=== PATIENT | female | born 1960 | race African-American/Black ===

== ENCOUNTER 2018-02-09 03:01 | Emergency (ER) | payer SELFPAY ==
--- NOTE | 2018-02-09 03:26 | Emergency Department Report ---
ED Altered Mental Status HPI - General Stated Complaint: UNRESPONSIVE Time Seen by Provider: 02/09/18 03:21 Source: family, EMS Limitations: Language Barrier - History of Present Illness Initial Comments: Ms. Tinoco is 57 yo female who presents to ED via EMS for unresponsiveness. Patient has hx of HTN not treated. Son was able to give hx. Aunt called son to inform him that patient went to sleep and did not wake up. Blood glucose 238 according to EMS. No change with naloxone administered. No hx of tobacco or drug abuse. Patient does hard labor in factory. patient is unresponsive comatose. No response to internal stimuli. Covered in urine. Complaint: altered mental status, decreased responsiveness Severity: severe Context: unknown Treatments Prior to Arrival: IV fluid, oxygen - Related Data Allergies Allergy/AdvReac Type Severity Reaction Status Date / Time No Known Allergies Allergy Unverified 02/09/18 03:27 ED Review of Systems ROS: Stated complaint: UNRESPONSIVE Other details as noted in HPI Comment: Unobtainable due to pts medical conditions ED Past Medical Hx - Past Medical History Hx Hypertension: Yes - Family History Family history: vascular disease (mother with CVA) - Social History Smoking Status: Never Smoker Substance Use Type: None ED Physical Exam - General Limitations: Language Barrier (patient speak [place]), Altered Mental Status , Other (comatose) General appearance: obtunded, in distress, other (flexor posturing in upper extremities, extensor posturing in feet/legs, sonorous respirations) - Head Head exam: Present: atraumatic, normocephalic - Eye Eye exam: Present: other (fixed unreactive pupils 5 mm bilaterally no lid reflex no accomodation) - ENT ENT exam: Present: normal orophraynx - Neck Neck exam: Present: normal inspection - Respiratory Respiratory exam: Present: rales, rhonchi, accessory muscle use - Cardiovascular Cardiovascular Exam: Present: normal rhythm, irregular rhythm. Absent: systolic murmur, diastolic murmur - GI/Abdominal GI/Abdominal exam: Present: soft, other (no distention soft) - Extremities Exam Extremities exam: Present: other (extensor posturing) - Neurological Exam Neurological exam: Present: other (comatose) - Psychiatric Psychiatric exam: Present: other (comatose) - Skin Skin exam: Present: pallor, other - Other Other exam information: no response to sternal rub ED Course Vital Signs 02/09/18 02/09/18 02/09/18 03:08 03:10 03:13 Temperature 98 F Pulse Rate 72 104 H Respiratory 20 18 20 Rate Blood Pressure 131/86 O2 Sat by Pulse 97 100 100 Oximetry 02/09/18 02/09/18 02/09/18 03:16 03:30 03:46 Temperature Pulse Rate 113 H 94 H 103 H Respiratory 28 H 24 25 H Rate Blood Pressure 131/86 174/104 141/93 O2 Sat by Pulse 99 100 100 Oximetry 02/09/18 04:00 Temperature Pulse Rate 115 H Respiratory 24 Rate Blood Pressure 141/93 O2 Sat by Pulse 100 Oximetry - Intubation Time Out Performed: Yes Sedative: Etomidate Mg Given: 20 Paralytic: Succinylcholine Mg Given: 100 Laryngoscope: Vanessa Size: 4 ET Tube Size: 7.5 Tube Secured Depth (cm): 22 Tube Secured Location: teeth Tube Placement Confirmation: visualized tube passing t, equal breath sounds bilat, no breath sounds over epi, confirmation by capnometr Patient Tolerated Procedure: well Intubation Complications: none - Lab Data Result diagrams: 02/09/18 03:30 02/09/18 03:30 Lab Results 02/09/18 02/09/18 02/09/18 Range/Units 03:30 03:30 03:30 WBC 28.9 H (4.5-11.0) K/mm3 RBC 4.63 (3.65-5.03) M/mm3 Hgb 13.8 (10.1-14.3) gm/dl Hct 41.3 (30.3-42.9) % MCV 89 (79-97) fl MCH 30 (28-32) pg MCHC 33 (30-34) % RDW 12.7 L (13.2-15.2) % Plt Count 303 (140-440) K/mm3 PT 13.1 (12.2-14.9) Sec. INR 0.95 (0.87-1.13) APTT 24.1 L (24.2-36.6) Sec. Thrombin Time 17.1 (15.1-19.6) Sec. POC ABG pH (7.35-7.45) POC ABG pCO2 (35-45) POC ABG pO2 (80-105) POC ABG HCO3 POC ABG Total CO2 POC ABG O2 Sat POC ABG Base Excess FiO2 % Sodium (137-145) mmol/L Potassium (3.6-5.0) mmol/L Chloride (98-107) mmol/L Carbon Dioxide (22-30) mmol/L Anion Gap mmol/L BUN (7-17) mg/dL Creatinine (0.7-1.2) mg/dL Estimated GFR ml/min BUN/Creatinine Ratio % Glucose (65-100) mg/dL Calcium (8.4-10.2) mg/dL Total Bilirubin (0.1-1.2) mg/dL ALT (7-56) units/L Alkaline Phosphatase (35-129) units/L Total Creatine Kinase 124 (30-135) units/L CK-MB (CK-2) 5.8 H (0.0-4.0) ng/mL CK-MB (CK-2) Rel Index 4.6 H (0-4) Troponin T 0.070 H (0.00-0.029) ng/mL Total Protein (6.3-8.2) g/dL Albumin (3.9-5) g/dL Albumin/Globulin Ratio % HCG, Quant (0-4) mIU/mL Urine Color (Yellow) Urine Turbidity (Clear) Urine pH (5.0-7.0) Ur Specific [place] (1.003-1.030) Urine Protein (Negative) mg/dL Urine Glucose (UA) (Negative) mg/dL Urine Ketones (Negative) mg/dL Urine Blood (Negative) Urine Nitrite (Negative) Urine Bilirubin (Negative) Urine Urobilinogen (<2.0) mg/dL Ur Leukocyte Esterase (Negative) Urine WBC (Auto) (0.0-6.0) /HPF Urine RBC (Auto) (0.0-6.0) /HPF Urine Opiates Screen Urine Methadone Screen Ur Barbiturates Screen Ur Phencyclidine Scrn Ur Amphetamines Screen U Benzodiazepines Scrn Urine Cocaine Screen U Marijuana (THC) Screen Drugs of Abuse Note 02/09/18 02/09/18 02/09/18 Range/Units 03:30 03:30 03:40 WBC (4.5-11.0) K/mm3 RBC (3.65-5.03) M/mm3 Hgb (10.1-14.3) gm/dl Hct (30.3-42.9) % MCV (79-97) fl MCH (28-32) pg MCHC (30-34) % RDW (13.2-15.2) % Plt Count (140-440) K/mm3 PT (12.2-14.9) Sec. INR (0.87-1.13) APTT (24.2-36.6) Sec. Thrombin Time (15.1-19.6) Sec. POC ABG pH (7.35-7.45) POC ABG pCO2 (35-45) POC ABG pO2 (80-105) POC ABG HCO3 POC ABG Total CO2 POC ABG O2 Sat POC ABG Base Excess FiO2 % Sodium 139 (137-145) mmol/L Potassium 3.4 L (3.6-5.0) mmol/L Chloride 97.4 L (98-107) mmol/L Carbon Dioxide 17 L (22-30) mmol/L Anion Gap 28 mmol/L BUN 13 (7-17) mg/dL Creatinine 0.6 L (0.7-1.2) mg/dL Estimated GFR > 60 ml/min BUN/Creatinine Ratio 22 % Glucose 249 H (65-100) mg/dL Calcium 9.0 (8.4-10.2) mg/dL Total Bilirubin 0.30 (0.1-1.2) mg/dL ALT 31 (7-56) units/L Alkaline Phosphatase 104 (35-129) units/L Total Creatine Kinase (30-135) units/L CK-MB (CK-2) (0.0-4.0) ng/mL CK-MB (CK-2) Rel Index (0-4) Troponin T (0.00-0.029) ng/mL Total Protein 8.1 (6.3-8.2) g/dL Albumin 4.1 (3.9-5) g/dL Albumin/Globulin Ratio 1.0 % HCG, Quant 0.895 (0-4) mIU/mL Urine Color Colorless (Yellow) Urine Turbidity Clear (Clear) Urine pH 6.0 (5.0-7.0) Ur Specific [place] 1.007 (1.003-1.030) Urine Protein 100 mg/dl (Negative) mg/dL Urine Glucose (UA) >=500 (Negative) mg/dL Urine Ketones 20 (Negative) mg/dL Urine Blood Sm (Negative) Urine Nitrite Neg (Negative) Urine Bilirubin Neg (Negative) Urine Urobilinogen < 2.0 (<2.0) mg/dL Ur Leukocyte Esterase Neg (Negative) Urine WBC (Auto) 2.0 (0.0-6.0) /HPF Urine RBC (Auto) 7.0 (0.0-6.0) /HPF Urine Opiates Screen Urine Methadone Screen Ur Barbiturates Screen Ur Phencyclidine Scrn Ur Amphetamines Screen U Benzodiazepines Scrn Urine Cocaine Screen U Marijuana (THC) Screen Drugs of Abuse Note 02/09/18 02/09/18 Range/Units 03:40 04:15 WBC (4.5-11.0) K/mm3 RBC (3.65-5.03) M/mm3 Hgb (10.1-14.3) gm/dl Hct (30.3-42.9) % MCV (79-97) fl MCH (28-32) pg MCHC (30-34) % RDW (13.2-15.2) % Plt Count (140-440) K/mm3 PT (12.2-14.9) Sec. INR (0.87-1.13) APTT (24.2-36.6) Sec. Thrombin Time (15.1-19.6) Sec. POC ABG pH 7.442 (7.35-7.45) POC ABG pCO2 20.9 L (35-45) POC ABG pO2 339 H (80-105) POC ABG HCO3 14.2 POC ABG Total CO2 15 POC ABG O2 Sat 100 POC ABG Base Excess -10 FiO2 100 % Sodium (137-145) mmol/L Potassium (3.6-5.0) mmol/L Chloride (98-107) mmol/L Carbon Dioxide (22-30) mmol/L Anion Gap mmol/L BUN (7-17) mg/dL Creatinine (0.7-1.2) mg/dL Estimated GFR ml/min BUN/Creatinine Ratio % Glucose (65-100) mg/dL Calcium (8.4-10.2) mg/dL Total Bilirubin (0.1-1.2) mg/dL ALT (7-56) units/L Alkaline Phosphatase (35-129) units/L Total Creatine Kinase (30-135) units/L CK-MB (CK-2) (0.0-4.0) ng/mL CK-MB (CK-2) Rel Index (0-4) Troponin T (0.00-0.029) ng/mL Total Protein (6.3-8.2) g/dL Albumin (3.9-5) g/dL Albumin/Globulin Ratio % HCG, Quant (0-4) mIU/mL Urine Color (Yellow) Urine Turbidity (Clear) Urine pH (5.0-7.0) Ur Specific [place] (1.003-1.030) Urine Protein (Negative) mg/dL Urine Glucose (UA) (Negative) mg/dL Urine Ketones (Negative) mg/dL Urine Blood (Negative) Urine Nitrite (Negative) Urine Bilirubin (Negative) Urine Urobilinogen (<2.0) mg/dL Ur Leukocyte Esterase (Negative) Urine WBC (Auto) (0.0-6.0) /HPF Urine RBC (Auto) (0.0-6.0) /HPF Urine Opiates Screen Presumptive negative Urine Methadone Screen Presumptive negative Ur Barbiturates Screen Presumptive negative Ur Phencyclidine Scrn Presumptive negative Ur Amphetamines Screen Presumptive negative U Benzodiazepines Scrn Presumptive negative Urine Cocaine Screen Presumptive negative U Marijuana (THC) Screen Presumptive negative Drugs of Abuse Note Disclamer 02/09/18 04:16 EKG obtained 0357 NSr rate 95 bpm nl axis prolonged QT interval ST depression inferior anterolatera leads, ST elevation 1 mm AVR - Medical Decision Making Ms. Tinoco presents in comatose state with flexor posturing of the upper extremities and extensor posturing of the lower extremities. She has extensive ICH with SAH and hydrocephalus. +intraparenchymal hemorrhage. Dr. Uriarte neurosurgeon accepted patient to [facility]. Dr. Patel neurointensivist also was included on the consultation. Neurointensivist recommended Keppra and amicar which was initiated in the ED. Will attempt to fly patient if possible, will need to be transferred as soon as possible for ventriculostomy Transferred in critical condition Critical Care Time: Yes Critical care time in (mins) excluding proc time.: 50 Critical care attestation.: If time is entered above; I have spent that time in minutes in the direct care of this critically ill patient, excluding procedure time. 50 minutes of critical care time excluding procedures were used in the care of the patient. Patient required multiple assessments interventions. I kept the The son informed. I spoke with transfer nurse and consultants: radiologist, neurosurgeon, neurointensivist. ED Disposition Clinical Impression: SAH (subarachnoid hemorrhage), Intraparenchymal hematoma of brain Disposition: DC/TX-70 ANOTHER TYPE HLTHCARE Is pt being admited?: No Does the pt Need Aspirin: No Condition: Stable Time of Disposition: 05:03
[2018-02-09] MEDS ORDERED: VASELINE LIP THERAPY TP PRN (03:29)
[2018-02-09] MEDS ORDERED: ARTIFICIAL TEARS OPHTH OINT OU PRN (03:29)
[2018-02-09] MEDS ORDERED: QUELICIN IV ONE (03:31)
[2018-02-09] MEDS ORDERED: AMIDATE IV ONE ×2 (03:31→11:16)
--- NOTE | 2018-02-09 03:50 | XRay Report ---
FINAL REPORT EXAM: XR CHEST 1V AP HISTORY: Post ETT placement COMPARISON: None available. FINDINGS: Frontal view(s) of the chest obtained. Heart borderline enlarged. ETT is present. Distal tip 1.2 centimeters from the catrachito. NG tube is present. NG tube is coiled within the mid stomach. Distal tip not visualized. Lungs are clear. No focal consolidation. No pneumothorax. IMPRESSION: ETT is present. Distal tip approximately 1.2 centimeters from the catrachito. NG tube is present. Distal tip is not visualized but extends at least to the mid stomach. Lungs are clear.
[2018-02-09 04:14] LABS: Bilirubin,Urine NEG (Negative); Blood,Urine SM (Negative); Color,Urine Colorless (Yellow); Urobilinogen,Urine < 2.0 mg/dL (<2.0)
[2018-02-09 04:20] LABS: Amphetamine Screen,Urine PRESUMPTIVE NEGATIVE; Benzodiazepines Screen,Urine PRESUMPTIVE NEGATIVE; Cannabinoid Screen,Urine PRESUMPTIVE NEGATIVE; Cocaine Screen,Urine PRESUMPTIVE NEGATIVE; Methadone Screen,Urine PRESUMPTIVE NEGATIVE; Opiate Screen,Urine PRESUMPTIVE NEGATIVE
[2018-02-09 04:35] LABS: Hematocrit 41.3 % (30.3-42.9); Hemoglobin 13.8 gm/dl (10.1-14.3); Mean Corpuscular HGB Conc 33 % (30-34); Mean Corpuscular Hemoglobin 30 pg (28-32); Mean Corpuscular Volume 89 fl (79-97); Platelet Count 303 K/mm3 (140-440); Red Blood Count 4.63 M/mm3 (3.65-5.03); Red Cell Distribution Width 12.7 % (13.2-15.2)
--- NOTE | 2018-02-09 04:49 | Cat Scan Report ---
FINAL REPORT EXAM: CT HEAD/BRAIN WO CON HISTORY: Stroke symptoms TECHNIQUE: Routine axial imaging was obtained of the brain without IV contrast. There are no previous studies available for comparison. FINDINGS: There is an extensive subarachnoid hemorrhage involving all the cisterns and fissures. There is asymmetric amount of blood in the right sylvian fissure. There is a parenchymal hemorrhage in the right frontal temporal region of the brain measuring 3.4 cm x 3.1 cm. There is acute blood throughout the entire ventricular system with dilatation of ventricular system compatible with communicating hydrocephalus. There is right to left subfalcine shift. The actual measurement is difficult to assess because of the tilting of the head in the gantry. There is no extra-axial blood. The visualized sinuses are clear. The mastoid air cells are well pneumatized. There is no evidence of skull fracture. IMPRESSION: Extensive subarachnoid hemorrhage with intraventricular blood and developing communicating hydrocephalus. Parenchymal hemorrhage in the right frontal temporal region of the brain noted also. It is uncertain whether the parenchymal hemorrhage is the primary cause of the remaining hemorrhage or is a secondary hemorrhage related to a rupture aneurysm, possibly in the distribution of the right middle cerebral artery. The findings were discussed with Dr. Martinez at 4:43 a.m. on 02/09/2018.
[2018-02-09 04:50] LABS: Alanine Aminotransferase 31 units/L (7-56); Albumin 4.1 g/dL (3.9-5); BUN/Creatinine Ratio 22; Blood Urea Nitrogen 13 mg/dL (7-17); Hemolysis Index 46
[2018-02-09 04:53] LABS: Creatine Kinase MB 5.8 ng/mL (0.0-4.0); INR 0.95 (0.87-1.13); Partial Thromboplastin Time 24.1 Sec. (24.2-36.6); Thrombin Time 17.1 Sec. (15.1-19.6)
[2018-02-09] MEDS ORDERED: KEPPRA 1,000 MG in NACL 0.9% 100 ML IV ONE (04:56)
[2018-02-09] MEDS ORDERED: AMICAR 5,000 MG in NACL 0.9% 100 ML IV ONE (04:58)
[2018-02-09] MEDS ORDERED: KEPPRA 1,000 MG/NS 0.75% 100ML 1,000 MG/100 ML BAG IV ONE (05:00)
--- NOTE | 2018-02-09 05:07 | Emergency Department Report ---
ED Neuro Deficit HPI - General Chief Complaint: Altered Mental Status Stated Complaint: UNRESPONSIVE Time Seen by Provider: 02/09/18 03:21 Source: family, EMS Mode of arrival: Stretcher Limitations: Language Barrier (patient speak vi[place]ense), Altered Mental Status , Other (comatose) - History of Present Illness Severity: severe - Related Data Allergies/Adverse Reactions: Allergies Allergy/AdvReac Type Severity Reaction Status Date / Time No Known Allergies Allergy Unverified 02/09/18 03:27 ED Review of Systems ROS: Stated complaint: UNRESPONSIVE Other details as noted in HPI ED Past Medical Hx - Past Medical History Hx Hypertension: Yes - Surgical History Past Surgical History?: No - Social History Smoking Status: Never Smoker Substance Use Type: None ED Neuro Physical Exam - General Limitations: Language Barrier (patient speak [place]), Altered Mental Status , Other (comatose) General appearance: obtunded, in distress, other (flexor posturing in upper extremities, extensor posturing in feet/legs, sonorous respirations) Suspected Stroke: Yes - NIHSS Assessment Interval: Baseline 1a. Level of Consciousness: coma/unresponsive 1b. LOC Questions: answers no questions correctly 1c. LOC Commands: performs no tasks correctly 2. Best Gaze: forced deviation 3. Visual: bilateral hemianopia 4. Facial Palsy: bilateral complete paralysis 5b. Motor Arm Right: some gravity effort 5a. Motor Arm Left: some gravity effort 6a. Motor Leg Left: no movement 6b. Motor Leg Right: no movement 7. Limb Ataxia: present 2 limbs 8. Sensory: coma/unresponsive 9. Best Language: coma/unresponsive 10. Dysarthria: mute/anarrthric 11. Extinction/Inattention: complete neglect Total Score: 38 Stroke Severity: Severe Stroke ED Course Vital Signs 02/09/18 02/09/18 02/09/18 03:08 03:10 03:13 Temperature 98 F Pulse Rate 72 104 H Respiratory 20 18 20 Rate Blood Pressure 131/86 O2 Sat by Pulse 97 100 100 Oximetry 02/09/18 02/09/18 02/09/18 03:16 03:30 03:46 Temperature Pulse Rate 113 H 94 H 103 H Respiratory 28 H 24 25 H Rate Blood Pressure 131/86 174/104 141/93 O2 Sat by Pulse 99 100 100 Oximetry 02/09/18 04:00 Temperature Pulse Rate 115 H Respiratory 24 Rate Blood Pressure 141/93 O2 Sat by Pulse 100 Oximetry - Lab Data Result diagrams: 02/09/18 03:30 02/09/18 03:30 Lab Results 02/09/18 02/09/18 02/09/18 Range/Units 03:30 03:30 03:30 WBC 28.9 H (4.5-11.0) K/mm3 RBC 4.63 (3.65-5.03) M/mm3 Hgb 13.8 (10.1-14.3) gm/dl Hct 41.3 (30.3-42.9) % MCV 89 (79-97) fl MCH 30 (28-32) pg MCHC 33 (30-34) % RDW 12.7 L (13.2-15.2) % Plt Count 303 (140-440) K/mm3 PT 13.1 (12.2-14.9) Sec. INR 0.95 (0.87-1.13) APTT 24.1 L (24.2-36.6) Sec. Thrombin Time 17.1 (15.1-19.6) Sec. POC ABG pH (7.35-7.45) POC ABG pCO2 (35-45) POC ABG pO2 (80-105) POC ABG HCO3 POC ABG Total CO2 POC ABG O2 Sat POC ABG Base Excess FiO2 % Sodium (137-145) mmol/L Potassium (3.6-5.0) mmol/L Chloride (98-107) mmol/L Carbon Dioxide (22-30) mmol/L Anion Gap mmol/L BUN (7-17) mg/dL Creatinine (0.7-1.2) mg/dL Estimated GFR ml/min BUN/Creatinine Ratio % Glucose (65-100) mg/dL Calcium (8.4-10.2) mg/dL Total Bilirubin (0.1-1.2) mg/dL ALT (7-56) units/L Alkaline Phosphatase (35-129) units/L Total Creatine Kinase 124 (30-135) units/L CK-MB (CK-2) 5.8 H (0.0-4.0) ng/mL CK-MB (CK-2) Rel Index 4.6 H (0-4) Troponin T 0.070 H (0.00-0.029) ng/mL Total Protein (6.3-8.2) g/dL Albumin (3.9-5) g/dL Albumin/Globulin Ratio % HCG, Quant (0-4) mIU/mL Urine Color (Yellow) Urine Turbidity (Clear) Urine pH (5.0-7.0) Ur Specific [place] (1.003-1.030) Urine Protein (Negative) mg/dL Urine Glucose (UA) (Negative) mg/dL Urine Ketones (Negative) mg/dL Urine Blood (Negative) Urine Nitrite (Negative) Urine Bilirubin (Negative) Urine Urobilinogen (<2.0) mg/dL Ur Leukocyte Esterase (Negative) Urine WBC (Auto) (0.0-6.0) /HPF Urine RBC (Auto) (0.0-6.0) /HPF Urine Opiates Screen Urine Methadone Screen Ur Barbiturates Screen Ur Phencyclidine Scrn Ur Amphetamines Screen U Benzodiazepines Scrn Urine Cocaine Screen U Marijuana (THC) Screen Drugs of Abuse Note 02/09/18 02/09/18 02/09/18 Range/Units 03:30 03:30 03:40 WBC (4.5-11.0) K/mm3 RBC (3.65-5.03) M/mm3 Hgb (10.1-14.3) gm/dl Hct (30.3-42.9) % MCV (79-97) fl MCH (28-32) pg MCHC (30-34) % RDW (13.2-15.2) % Plt Count (140-440) K/mm3 PT (12.2-14.9) Sec. INR (0.87-1.13) APTT (24.2-36.6) Sec. Thrombin Time (15.1-19.6) Sec. POC ABG pH (7.35-7.45) POC ABG pCO2 (35-45) POC ABG pO2 (80-105) POC ABG HCO3 POC ABG Total CO2 POC ABG O2 Sat POC ABG Base Excess FiO2 % Sodium 139 (137-145) mmol/L Potassium 3.4 L (3.6-5.0) mmol/L Chloride 97.4 L (98-107) mmol/L Carbon Dioxide 17 L (22-30) mmol/L Anion Gap 28 mmol/L BUN 13 (7-17) mg/dL Creatinine 0.6 L (0.7-1.2) mg/dL Estimated GFR > 60 ml/min BUN/Creatinine Ratio 22 % Glucose 249 H (65-100) mg/dL Calcium 9.0 (8.4-10.2) mg/dL Total Bilirubin 0.30 (0.1-1.2) mg/dL ALT 31 (7-56) units/L Alkaline Phosphatase 104 (35-129) units/L Total Creatine Kinase (30-135) units/L CK-MB (CK-2) (0.0-4.0) ng/mL CK-MB (CK-2) Rel Index (0-4) Troponin T (0.00-0.029) ng/mL Total Protein 8.1 (6.3-8.2) g/dL Albumin 4.1 (3.9-5) g/dL Albumin/Globulin Ratio 1.0 % HCG, Quant 0.895 (0-4) mIU/mL Urine Color Colorless (Yellow) Urine Turbidity Clear (Clear) Urine pH 6.0 (5.0-7.0) Ur Specific [place] 1.007 (1.003-1.030) Urine Protein 100 mg/dl (Negative) mg/dL Urine Glucose (UA) >=500 (Negative) mg/dL Urine Ketones 20 (Negative) mg/dL Urine Blood Sm (Negative) Urine Nitrite Neg (Negative) Urine Bilirubin Neg (Negative) Urine Urobilinogen < 2.0 (<2.0) mg/dL Ur Leukocyte Esterase Neg (Negative) Urine WBC (Auto) 2.0 (0.0-6.0) /HPF Urine RBC (Auto) 7.0 (0.0-6.0) /HPF Urine Opiates Screen Urine Methadone Screen Ur Barbiturates Screen Ur Phencyclidine Scrn Ur Amphetamines Screen U Benzodiazepines Scrn Urine Cocaine Screen U Marijuana (THC) Screen Drugs of Abuse Note 02/09/18 02/09/18 Range/Units 03:40 04:15 WBC (4.5-11.0) K/mm3 RBC (3.65-5.03) M/mm3 Hgb (10.1-14.3) gm/dl Hct (30.3-42.9) % MCV (79-97) fl MCH (28-32) pg MCHC (30-34) % RDW (13.2-15.2) % Plt Count (140-440) K/mm3 PT (12.2-14.9) Sec. INR (0.87-1.13) APTT (24.2-36.6) Sec. Thrombin Time (15.1-19.6) Sec. POC ABG pH 7.442 (7.35-7.45) POC ABG pCO2 20.9 L (35-45) POC ABG pO2 339 H (80-105) POC ABG HCO3 14.2 POC ABG Total CO2 15 POC ABG O2 Sat 100 POC ABG Base Excess -10 FiO2 100 % Sodium (137-145) mmol/L Potassium (3.6-5.0) mmol/L Chloride (98-107) mmol/L Carbon Dioxide (22-30) mmol/L Anion Gap mmol/L BUN (7-17) mg/dL Creatinine (0.7-1.2) mg/dL Estimated GFR ml/min BUN/Creatinine Ratio % Glucose (65-100) mg/dL Calcium (8.4-10.2) mg/dL Total Bilirubin (0.1-1.2) mg/dL ALT (7-56) units/L Alkaline Phosphatase (35-129) units/L Total Creatine Kinase (30-135) units/L CK-MB (CK-2) (0.0-4.0) ng/mL CK-MB (CK-2) Rel Index (0-4) Troponin T (0.00-0.029) ng/mL Total Protein (6.3-8.2) g/dL Albumin (3.9-5) g/dL Albumin/Globulin Ratio % HCG, Quant (0-4) mIU/mL Urine Color (Yellow) Urine Turbidity (Clear) Urine pH (5.0-7.0) Ur Specific [place] (1.003-1.030) Urine Protein (Negative) mg/dL Urine Glucose (UA) (Negative) mg/dL Urine Ketones (Negative) mg/dL Urine Blood (Negative) Urine Nitrite (Negative) Urine Bilirubin (Negative) Urine Urobilinogen (<2.0) mg/dL Ur Leukocyte Esterase (Negative) Urine WBC (Auto) (0.0-6.0) /HPF Urine RBC (Auto) (0.0-6.0) /HPF Urine Opiates Screen Presumptive negative Urine Methadone Screen Presumptive negative Ur Barbiturates Screen Presumptive negative Ur Phencyclidine Scrn Presumptive negative Ur Amphetamines Screen Presumptive negative U Benzodiazepines Scrn Presumptive negative Urine Cocaine Screen Presumptive negative U Marijuana (THC) Screen Presumptive negative Drugs of Abuse Note Disclamer Critical care attestation.: If time is entered above; I have spent that time in minutes in the direct care of this critically ill patient, excluding procedure time. ED Disposition Clinical Impression: SAH (subarachnoid hemorrhage), Intraparenchymal hematoma of brain Disposition: DC/TX-70 ANOTHER TYPE HLTHCARE Is pt being admited?: No Does the pt Need Aspirin: No Condition: Stable
[2018-02-09 05:12] LABS: Basophils % (Manual) 0 % (0.0-1.8); Total Cells Counted 100
[2018-02-09 05:13] LABS: Platelet Estimate Consistent w Auto; RBC Morphology Normal
[2018-02-09 06:07] LABS: Chol/HDL Ratio 4.29 %
[2018-02-09 06:19] VITALS: BP 139/91
[2018-02-09] MEDS ORDERED: QUELICIN ONE (11:16)
== END 2018-02-09 06:30 | disposition other institution (70) ==
LOC: ED 03:01
DX: I60.9 Nontraumatic subarachnoid hemorrhage, unspecified (principal); I61.8 Other nontraumatic intracerebral hemorrhage; I10 Essential (primary) hypertension
CPT/HCPCS: 31500; 36415; 70450; 71045; 80053; 80061; 80307; 81001; 82550; 82553; 82803; 84484; 84702; 85007; 85025; 85610; 85670; 85730; 86850; 86900; 86901; 87070; 87205; 93005; 93010; 96365; 96367; 99291; J0330; J1953; 94002